=== PATIENT | female | born 1995 ===

== ENCOUNTER 2019-11-03 21:41 | Inpatient (IN) | payer OTHER ==
[~2019-11-03] VITALS: Ht 152.4 cm; Wt 73.9 kg
[2019-11-03] MEDS ORDERED: ONDANSETRON 2MG/ML, 2ML ONE (22:15)
--- NOTE | 2019-11-03 22:20 | NUR ---
Patient into room with emergency department retail maintenance technician. Patient vomiting while adjacent to bedside. Patient changed into hospital gown. Emergency department technican agreeable to starting intravenous line. Midlevel provider just finished assessing patient. Awaiting orders.
[2019-11-03] MEDS ORDERED: MAALOX/HYOSCYAMINE/LIDOCAINE 45 ML BTL ONE (22:25)
[2019-11-03] MEDS ORDERED: MORPHINE SULFATE 4 MG/ML, 1ML ONE (22:25)
[2019-11-03] MEDS: MORPHINE SULFATE 4 MG/ML, 1ML IVPush PRN (22:28)
[2019-11-03] MEDS ORDERED: SODIUM CHLORIDE FLUSH 10ML SYR IVF ONE (22:30)
[2019-11-03] MEDS ORDERED: ONDANSETRON 2MG/ML, 2ML IVPush ONE (22:30)
[2019-11-03] MEDS ORDERED: MAALOX/HYOSCYAMINE/LIDOCAINE 45 ML BTL PO ONE (22:30)
[2019-11-03 22:49] LABS: MEAN CORPUSCULAR HEMOGLOBIN 30.3 pg (27.0-34.8); MEAN CORPUSCULAR HGB CONC 34.2 g/dL (32.4-35.8); MEAN CORPUSCULAR VOLUME 88.7 fL (80-100); MEAN PLATELET VOLUME 8.4 fL (7.4-10.4); PLATELET COUNT 343 x10^3/uL (130-400); RED BLOOD COUNT 4.71 x10^6/uL (3.82-5.3); RED CELL DISTRIBUTION WIDTH 13.8 % (9.6-15.2)
[2019-11-03 23:04] LABS: ALBUMIN 4.1 g/dL (3.4-5.0); ANION GAP 10 mmol/L (5-15); CALCIUM 8.6 mg/dL (8.5-10.1); CHLORIDE 105 mmol/L (98-107)
[2019-11-03 23:12] LABS: ALANINE AMINOTRANSFERASE 27 U/L (12-78); ALKALINE PHOSPHATASE 103 U/L (45-117); BILIRUBIN,TOTAL 0.4 mg/dL (0.2-1.0); CREATININE 0.88 mg/dL (0.55-1.02); TOTAL PROTEIN 9.2 g/dL (6.4-8.2)
[2019-11-03 23:24] LABS: MD YES
[2019-11-03 23:26] LABS: <PLATELET ESTIMATE> ADEQUATE; <PLT MORPHOLOGY> NORMAL PLT MORPH; <RBC MORPHOLOGY> NORMAL; BANDS%(MANUAL) 1 % (0-7); LYMPH#(MANUAL) 0.99 x10^3/uL (1-3.4); LYMPHS% (MANUAL) 5 % (22-44); MONOS#(MANUAL) 0.79 x10^3/uL (0.3-2.7); MONOS% (MANUAL) 4 % (2-9); SEG#(MANUAL) 17.73 x10^3/uL (1.8-6.8); SEGS% (MANUAL) 90 % (42-75)
--- NOTE | 2019-11-03 23:36 | NUR ---
Patient returned from CT scan. Awaiting results.
[2019-11-03] MEDS ORDERED: OMNIPAQUE 350 MG/ML, 100ML BOTTLE ONE (23:37)
[2019-11-04] MEDS ORDERED: CIPROFLOXACIN/PMX 400MG/200ML 200 ML ONE (00:51)
[2019-11-04] MEDS ORDERED: METRONIDAZOLE PMX 500MG/100ML 100 ML ONE (00:51)
[2019-11-04] MEDS ORDERED: MORPHINE SULFATE 4 MG/ML, 1ML ONE (00:53)
[2019-11-04] MEDS ORDERED: SODIUM CHLORIDE 0.9% 1,000 ML IV ONE (00:56)
[2019-11-04] MEDS ORDERED: METRONIDAZOLE PMX 500MG/100ML 100 ML IV ONE (01:00)
[2019-11-04] MEDS ORDERED: MORPHINE SULFATE 4 MG/ML, 1ML IVPush PRN (01:00)
[2019-11-04] MEDS ORDERED: CIPROFLOXACIN/PMX 400MG/200ML 200 ML IV ONE (01:00)
[2019-11-04] MEDS ORDERED: ONDANSETRON 2MG/ML, 2ML IVPush PRN ×2 (01:00→03:30)
[2019-11-04] MEDS: MORPHINE SULFATE 4 MG/ML, 1ML IVPush PRN (01:07)
--- NOTE | 2019-11-04 01:31 | NUR ---
Midlevel provider to bedside with RN soon behind. Patient informed of diagnoses and patient offered the option of admission versus going home with oral medications. Patient agreeable to admission. RN returned to bedside, patient administered a second dose of pain medication, and first antibiotic running. Patient also provided an additional warm blanket. Called medical floor x1. Awaiting call back.
[2019-11-04 01:49] VITALS: BP 90/55
[2019-11-04 02:32] LABS: CULTURE INDICATED? NO; MICROSCOPIC AUTO
[2019-11-04] MEDS ORDERED: morphine SULFATE 10 MG/ML, 1ML IVPush PRN (03:30)
[2019-11-04] MEDS ORDERED: METOCLOPRAMIDE 5 MG/ML, 2ML IVPush PRN (03:30)
[2019-11-04] MEDS ORDERED: PROMETHAZINE 25 MG/ML, 1ML IM PRN (03:30)
[2019-11-04] MEDS: D5%-0.45NACL+KCL 20MEQ 1,000 ML IV SCH ×2 (04:28→14:24)
[2019-11-04] MEDS: CEFTRIAXONE PMX 1GM/50ML 50 ML IV SCH (04:28)
[2019-11-04] MEDS: METRONIDAZOLE PMX 500MG/100ML 100 ML IV SCH ×3 (05:24→18:13)
[2019-11-04 06:26] LABS: BASOPHILS # (AUTO) 0.01 x10^3/uL (0-0.1); BASOPHILS % (AUTO) 0 % (0-1); EOSINOPHILS % (AUTO) 0 % (1-7); LYMPHOCYTES # (AUTO) 1.18 x10^3/uL (1-3.4); LYMPHOCYTES % (AUTO) 7 % (22-44); MD NO; MEAN CORPUSCULAR HGB CONC 33.5 g/dL (32.4-35.8); MEAN CORPUSCULAR VOLUME 89.4 fL (80-100); MEAN PLATELET VOLUME 8.4 fL (7.4-10.4); MONOCYTES # (AUTO) 0.69 x10^3/uL (0.2-0.8); MONOCYTES % (AUTO) 4 % (2-9); NEUTROPHILS # (AUTO) 15.27 x10^3/uL (1.8-6.8); NEUTROPHILS % (AUTO) 89 % (42-75); PLATELET COUNT 299 x10^3/uL (130-400); RED BLOOD COUNT 4.48 x10^6/uL (3.82-5.3); RED CELL DISTRIBUTION WIDTH 14.1 % (9.6-15.2)
[2019-11-04 06:30] LABS: ALANINE AMINOTRANSFERASE 27 U/L (12-78); ALBUMIN 3.7 g/dL (3.4-5.0); ANION GAP 7 mmol/L (5-15); CALCIUM 8.2 mg/dL (8.5-10.1); CHLORIDE 104 mmol/L (98-107); CREATININE 1.01 mg/dL (0.55-1.02)
[2019-11-04 06:32] LABS: ALKALINE PHOSPHATASE 97 U/L (45-117); BILIRUBIN,TOTAL 0.6 mg/dL (0.2-1.0); TOTAL PROTEIN 8.5 g/dL (6.4-8.2)
[2019-11-04] MEDS: ENOXAPARIN 40 MG/0.4 ML SQ SCH (09:00)
[2019-11-04 09:17] VITALS: BP 91/56
[2019-11-04 16:33] VITALS: BP 94/57
[2019-11-04 19:53] VITALS: BP 100/63
[2019-11-05] MEDS: D5%-0.45NACL+KCL 20MEQ 1,000 ML IV SCH ×2 (00:15→14:30)
[2019-11-05 03:03] VITALS: BP 111/64
[2019-11-05] MEDS: CEFTRIAXONE PMX 1GM/50ML 50 ML IV SCH (03:03)
[2019-11-05] MEDS: METRONIDAZOLE PMX 500MG/100ML 100 ML IV SCH ×3 (04:10→21:51)
[2019-11-05 05:40] LABS: ANION GAP 4 mmol/L (5-15); BASOPHILS # (AUTO) 0.02 x10^3/uL (0-0.1); BASOPHILS % (AUTO) 0 % (0-1); CALCIUM 8.1 mg/dL (8.5-10.1); CHLORIDE 111 mmol/L (98-107); CREATININE 0.88 mg/dL (0.55-1.02); EOSINOPHILS # (AUTO) 0.04 x10^3/uL (0-0.4); EOSINOPHILS % (AUTO) 1 % (1-7); LYMPHOCYTES # (AUTO) 2.48 x10^3/uL (1-3.4); LYMPHOCYTES % (AUTO) 31 % (22-44); MD NO; MEAN CORPUSCULAR HEMOGLOBIN 30.1 pg (27.0-34.8); MEAN CORPUSCULAR HGB CONC 33.5 g/dL (32.4-35.8); MEAN CORPUSCULAR VOLUME 89.9 fL (80-100); MEAN PLATELET VOLUME 8.7 fL (7.4-10.4); MONOCYTES # (AUTO) 0.75 x10^3/uL (0.2-0.8); MONOCYTES % (AUTO) 9 % (2-9); NEUTROPHILS # (AUTO) 4.85 x10^3/uL (1.8-6.8); NEUTROPHILS % (AUTO) 60 % (42-75); PLATELET COUNT 238 x10^3/uL (130-400); RED BLOOD COUNT 4.08 x10^6/uL (3.82-5.3); RED CELL DISTRIBUTION WIDTH 13.9 % (9.6-15.2)
[2019-11-05 08:08] VITALS: BP 97/65
[2019-11-05] MEDS: ENOXAPARIN 40 MG/0.4 ML SQ SCH (08:35)
[2019-11-05 13:40] VITALS: BP 99/63
[2019-11-05 20:24] VITALS: BP 98/63
[2019-11-06] MEDS: D5%-0.45NACL+KCL 20MEQ 1,000 ML IV SCH ×2 (01:42→10:36)
[2019-11-06 01:43] VITALS: BP 113/73
[2019-11-06] MEDS: CEFTRIAXONE PMX 1GM/50ML 50 ML IV SCH (03:27)
[2019-11-06] MEDS: METRONIDAZOLE PMX 500MG/100ML 100 ML IV SCH ×2 (05:43→13:54)
[2019-11-06 07:56] VITALS: BP 103/68
[2019-11-06] MEDS: ENOXAPARIN 40 MG/0.4 ML SQ SCH (09:00)
[2019-11-06] MEDS ORDERED: ONDA4TAB7 PO (14:07)
[2019-11-06] MEDS ORDERED: METR500T PO (14:07)
[2019-11-06] MEDS ORDERED: CEFD300C37 PO (14:07)
[2019-11-06 14:41] VITALS: BP 99/62
== END 2019-11-06 15:23 | disposition home or self-care (01) | DRG 392 ==
LOC: ED 23:42 → EDIP 11-04 01:02 → 3N 11-04 01:45
PROVIDERS: ADMIT Internal Medicine; ATTEND Internal Medicine
DX: A09 Infectious gastroenteritis and colitis, unspecified (principal); D72.823 Leukemoid reaction; N83.02 Follicular cyst of left ovary; Z83.3 Family history of diabetes mellitus; Z87.891 Personal history of nicotine dependence
CPT/HCPCS: 36415; 74177; 80048; 80053; 81001; 83690; 83735; 84100; 84703; 85025; 96374; G0378; J0696; J0744; J2405; Q9967; J2270; J3480; J7030